=== PATIENT | female | born 1995 | race Caucasian/White ===

== ENCOUNTER 2018-01-05 01:12 | Emergency (ER) | payer OTHER, MEDICAID ==
[~2018-01-05] VITALS: Ht 165.1 cm; Wt 55.4 kg
[2018-01-05 01:19] VITALS: BP 120/74; PULSE 96; TEMP 98.4; O2SAT 98
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
[2018-01-05 02:54] VITALS: BP 128/85
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
== END 2018-01-05 03:44 | disposition home or self-care (01) ==
LOC: PHED 01:12
DX: S80.11XA Contusion of right lower leg, initial encounter (principal); V49.9XXA Car occupant (driver) (passenger) injured in unspecified traffic accident, initial encounter
CPT/HCPCS: 73590; 84703; 99284